=== PATIENT | female | born 1955 | race Caucasian/White ===

== ENCOUNTER 2021-07-29 07:00 | Outpatient (CLI) | payer MEDICARE | END 2021-07-29 23:59 | disposition home or self-care (01) | LOC: LAB 07:00 | PROVIDERS: ATTEND Physician Assistant Medical | DX: R53.83 Other fatigue (principal); R53.81 Other malaise; Z20.822 Contact with and (suspected) exposure to COVID-19 ==

== ENCOUNTER 2021-08-25 11:00 | Outpatient (CLI) | payer MEDICARE ==
[2021-08-25 11:38] LABS: CHOL/HDL RATIO 3.6 (<4.4); CHOLESTEROL 267 mg/dL; HDL CHOLESTEROL 74 mg/dL; LDL CHOLESTEROL,CALCULATED 175 mg/dL; LDL/HDL RATIO 2.4 (<4.4); TRIGLYCERIDES 88 mg/dL; VLDL CHOLESTEROL 18 mg/dL
== END 2021-08-25 11:01 | disposition home or self-care (01) ==
LOC: LAB 11:00
PROVIDERS: ATTEND Internal Medicine
DX: E78.2 Mixed hyperlipidemia (principal)
CPT/HCPCS: 36415; 80061; 83721

== ENCOUNTER 2021-08-29 08:00 | Outpatient (CLI) | payer MEDICARE | END 2021-08-29 23:59 | disposition home or self-care (01) | LOC: LAB 08:00 | PROVIDERS: ATTEND Physician Assistant Medical | DX: J32.9 Chronic sinusitis, unspecified (principal); Z20.822 Contact with and (suspected) exposure to COVID-19 ==

== ENCOUNTER 2022-02-06 14:27 | Outpatient (CLI) | payer MEDICARE ==
--- NOTE | 2022-02-10 10:25 | Ultrasound Report ---
LIMITED ULTRASOUND OF RIGHT BREAST: 02/06/2022 CLINICAL: Patient returns for additional imaging over a suspected mass in the right breast. Comparison is made to exams dated: 01/06/2022 breast MRI - [facility], 11/21/2021 specimen, 2 stereotactic biopsy - [facility], 11/10/2021 mammogram, 10/27/2021 mammogram - [facility], and 11/25/2018 mammogram - out side. Color flow and real-time ultrasound of the right breast retroareolar were performed. Allison scale imag es of the real-time examination were reviewed. There is benign duct dilatation in the right breast central to the nipple posterior depth. No intradu ctal mass. IMPRESSION: KNOWN BIOPSY PROVEN MALIGNANCY There is no sonographic evidence of malignancy. The subareolar ducts are dilated consistent with duct ectasia and is benign. 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 This exam was interpreted at Station ID: [id number]. Electronically Signed By: Rui Mckeon acr/:02/06/2022 16:41:41 Entry: - 02/10/2022 09:46:09 Ultrasound BI-RADS: 6 Known biopsy proven malignancy BI-RADS CATEGORY: (6) - 6 Unspecified - other recall n/a LATERALITY: (B)
== END 2022-02-06 14:28 | disposition home or self-care (01) ==
LOC: DI 14:27
PROVIDERS: ATTEND Surgery
DX: C50.811 Malignant neoplasm of overlapping sites of right female breast (principal); R92.8 Other abnormal and inconclusive findings on diagnostic imaging of breast

== ENCOUNTER 2022-02-13 13:03 | Outpatient (CLI) | payer MEDICARE | END 2022-02-13 13:04 | disposition home or self-care (01) | LOC: LAB 13:03 | PROVIDERS: ATTEND Surgery | DX: Z01.812 Encounter for preprocedural laboratory examination (principal); D05.11 Intraductal carcinoma in situ of right breast; Z20.822 Contact with and (suspected) exposure to COVID-19 ==

== ENCOUNTER 2022-02-16 07:59 | Day surgery (SDC) | payer MEDICARE ==
[~2022-02-16 07:59] MED LIST: LIDOCAINE-MPF 1% 10 ML AMP ONE
[2022-02-16] MEDS ORDERED: LACTATED RINGERS 1,000 ML IV ONE (08:18)
[2022-02-16 08:20] VITALS: BP 141/87
[2022-02-16] MEDS ORDERED: ATROPINE ABBOJECT 1 MG/10 ML SYRINGE IVP PRN (08:40)
[2022-02-16] MEDS ORDERED: NALOXONE 0.4 MG/ML VIAL IVP PRN (08:40)
[2022-02-16] MEDS ORDERED: HYDROmorphone 0.5 MG/0.5 ML SYRINGE IVP PRN (08:40)
[2022-02-16] MEDS ORDERED: ONDANSETRON 4 MG/2 ML VIAL IVP PRN (08:40)
[2022-02-16] MEDS ORDERED: fentaNYL 100 MCG/2 ML VIAL IVP PRN (08:40)
[2022-02-16] MEDS ORDERED: MORPHINE 2 MG/ML CARPUJECT IVP PRN (08:40)
[2022-02-16] MEDS ORDERED: ePHEDrine 50 MG/ML VIAL IVP PRN (08:40)
[2022-02-16] MEDS ORDERED: METOCLOPRAMIDE 10 MG/2 ML VIAL IVP PRN (08:40)
--- NOTE | 2022-02-16 08:40 | ANESTHESIA ---
Pre-Anesthesia VS, & Labs - Diagnosis R breast mass - Procedure R breast lumpectomy Vital Signs: Temp Pulse Resp BP Pulse Ox 36.6 C 75 14 141/87 H 98 02/16/22 08:10 02/16/22 08:10 02/16/22 08:10 02/16/22 08:10 02/16/22 08:10 Height: 5 ft 5 in Weight (kg): 80 kg Body Mass Index: 29.3 BMI Classification: Overweight - NPO >8 hours - Is Patient ?: No Home Medications and Allergies No Known Home Medications 02/06/22 Allergies/Adverse Reactions: Allergies Allergy/AdvReac Type Severity Reaction Status Date / Time adhesive tape AdvReac blisters Verified 02/16/22 08:36 Anes History & Medical History - Anesthetic History Anesthesia Complications: reports: No previous complications Family history of Anesthesia Complications: Denies Family history of Malignant Hyperthermia: Denies - Medical History Cardiovascular: reports: None Pulmonary: reports: None Gastrointestinal: reports: None Urinary: reports: None Musculoskeletal: reports: None Endocrine/Autoimmune: reports: None Skin: reports: Other - Surgical History General: reports: Colonoscopy Orthopedic: reports: Arthroscopic surgery Exam General: Alert, Oriented x3, Cooperative Dental: WNL Mouth Openin Fingerbreadth Neck Mobility: Normal Mallampati classification: II Thyromental Distance: 4-6 cm Respiratory: Lungs clear Cardiovascular: Regular rate Plan Anesthesia Type: General Consent for Procedure(s) Verified and Reviewed: Yes Code Status: Attempt Resuscitation ASA classification: 2-Mild systemic disease Is this case an emergency?: No
[2022-02-16] MEDS ORDERED: LACTATED RINGERS 1,000 ML IV SCH (09:00)
--- NOTE | 2022-02-16 11:34 | Ultrasound Report ---
PROCEDURE: Breast Unilateral Limited INDICATIONS: RT BREAST DCIS TECHNIQUE: The indications, alternatives, benefits, risks, and complications of the procedure were explained to the patient. Written informed consent was obtained and placed in the chart. The abdomen and pelvis were examined sonographically, and an appropriate site was chosen for paracentesis. The skin was pre pared and draped in the usual sterile fashion, and 1% lidocaine was infiltrated from the skin down th rough the peritoneal surface. A 19-gauge catheter-covered needle was then introduced into the perito denys space, the catheter was advanced and the needle was withdrawn, and thereafter peritoneal fluid w as withdrawn. The catheter was then removed and a dressing was applied. The fluid was discarded if the clinician did not order diagnostic testing of the fluid. COMPARISON: MRI breast 01/06/2022 and stereotactic guided biopsy images 11/21/2021. FINDINGS: The previously placed biopsy marker is not visualized sonographically. No sonographic abnor mality is identified at the 12:00 posterior depth area of interest. IMPRESSION: Wire localization procedure was not performed, as the biopsy marker could not be visualized. Reviewed by: Evangelist Justin MD on 02/16/2022 11:33 AM PDT Approved by: Evangelist Justin MD on 02/16/2022 11:33 AM PDT Station ID: [id number]
== END 2022-02-16 08:00 | disposition home or self-care (01) ==
LOC: DI 07:59
PROVIDERS: ATTEND Surgery
DX: D05.11 Intraductal carcinoma in situ of right breast (principal); Z53.8 Procedure and treatment not carried out for other reasons

== ENCOUNTER 2022-02-19 06:30 | Day surgery (SDC) | payer MEDICARE ==
[~2022-02-19 06:30] MED LIST changes: +CEFAZOLIN SODIUM IN 0.9 % NACL 2 GM/50 ML BAG IV ONE; +LACTATED RINGERS 1,000 ML IV ONE; -LIDOCAINE-MPF 1% 10 ML AMP ONE
--- NOTE | 2022-02-19 07:31 | ANESTHESIA ---
Pre-Anesthesia VS, & Labs - Diagnosis right breast cancer - Procedure right breast lumpectomy, needle localization Height: 5 ft 5 in Weight (kg): 80.6 kg Body Mass Index: 29.5 BMI Classification: Overweight - NPO >8 hours - Is Patient ?: No Home Medications and Allergies No Known Home Medications 02/06/22 Allergies/Adverse Reactions: Allergies Allergy/AdvReac Type Severity Reaction Status Date / Time adhesive tape AdvReac blisters Verified 02/19/22 07:09 Anes History & Medical History - Anesthetic History Anesthesia Complications: reports: No previous complications - Medical History Cardiovascular: reports: None Pulmonary: reports: None Gastrointestinal: reports: None Urinary: reports: None Musculoskeletal: reports: None Endocrine/Autoimmune: reports: None Skin: reports: None Smoking Status: Never smoker Psychosocial: reports: Alcohol (wine now and then) History of Cancer?: Yes - Surgical History General: reports: Colonoscopy Gynecologic: reports: Other Exam General: Alert, Oriented x3 Dental: WNL Mouth Opening: Greater than 4 Fingerbreadths Neck Mobility: Normal Mallampati classification: II Thyromental Distance: greater than 6 cm Respiratory: Lungs clear Cardiovascular: Regular rate Plan Anesthesia Type: General Consent for Procedure(s) Verified and Reviewed: Yes Code Status: Attempt Resuscitation ASA classification: 2-Mild systemic disease Is this case an emergency?: No
[2022-02-19] MEDS ORDERED: ATROPINE ABBOJECT 1 MG/10 ML SYRINGE IVP PRN (07:32)
[2022-02-19] MEDS ORDERED: HYDROmorphone 0.5 MG/0.5 ML SYRINGE IVP PRN (07:32)
[2022-02-19] MEDS ORDERED: NALOXONE 0.4 MG/ML VIAL IVP PRN (07:32)
[2022-02-19] MEDS ORDERED: MORPHINE 2 MG/ML CARPUJECT IVP PRN (07:32)
[2022-02-19] MEDS ORDERED: ONDANSETRON 4 MG/2 ML VIAL IVP PRN ×2 (07:32→09:25)
[2022-02-19] MEDS ORDERED: ePHEDrine 50 MG/ML VIAL IVP PRN (07:32)
[2022-02-19] MEDS ORDERED: METOCLOPRAMIDE 10 MG/2 ML VIAL IVP PRN (07:32)
[2022-02-19] MEDS ORDERED: fentaNYL 100 MCG/2 ML VIAL IVP PRN (07:32)
[2022-02-19] MEDS ORDERED: MIDAZOLAM 2 MG/2 ML VIAL ONE (07:44)
[2022-02-19] MEDS ORDERED: LACTATED RINGERS 1,000 ML IV SCH (08:00)
[2022-02-19] MEDS ORDERED: BUPIVACAINE 0.25% PF 30 ML VIAL ONE (08:32)
[2022-02-19] MEDS ORDERED: LIDOCAINE 2%-EPI 1:100000 20 ML MDV ONE (08:32)
[2022-02-19] MEDS ORDERED: PROPOFOL 200 MG/20 ML VIAL IVP ONE (09:00)
[2022-02-19] MEDS ORDERED: diphenhydrAMINE INJ 50 MG/ML VIAL ONE (09:00)
[2022-02-19] MEDS ORDERED: ONDANSETRON 4 MG/2 ML VIAL ONE (09:00)
[2022-02-19] MEDS ORDERED: LIDOCAINE-MPF 2% 5 ML VIAL ONE (09:00)
[2022-02-19] MEDS ORDERED: DEXAMETHASONE 4 MG/ML VIAL ONE (09:00)
[2022-02-19] MEDS ORDERED: BUPIVACAINE 0.25% PF 30 ML VIAL SUBQ ONE ×2 (09:10)
[2022-02-19] MEDS ORDERED: ePHEDrine 50 MG/ML VIAL IVP ONE (09:24)
--- NOTE | 2022-02-19 09:24 | OPERATIVE REPORT ---
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 Following successful induction of general endotracheal anesthesia, appropriate padding of all bony prominences, and placement of appropriate monitors, the left breast was prepped and draped in the standard surgical fashion. A timeout was held per scope protocol. All elements of the surgical safety checklist were followed before, during, and after the procedure. The area over the right breast mass and in a lateral axillary fold was infiltrated with a mixture of local anesthetics to cry to field block. An incision was then created laterally in the area of wire placment and carried through the skin and subcutaneous tissue. Images were consulted once again to triangulate the position of the clip and calcifications in relation to the wire. Sharp dissection was undertaken to remove the wire and the surrounding tissue in one piece. This was submitted for xray and revealed the marker and wire both contained within the specimen. The wound was checked for hemostasis. It was irrigated again with warm water. The biopsy cavity was then marked with clips peripherally and centrally. The wound was then closed in 2 layers with Vicryl and Monocryl sutures. All sponge, needle, and instrument counts were correct at the conclusion of the case. The patient was let awakened anesthesia without difficulty and taken to the postanesthesia care unit in good condition.
[2022-02-19] MEDS ORDERED: IBUPROFEN 600 MG TABLET PO PRN (09:25)
[2022-02-19] MEDS ORDERED: oxyCODONE 5 MG TABLET PO PRN (09:25)
[2022-02-19] MEDS ORDERED: ACETAMINOPHEN 325 MG TABLET PO PRN (09:25)
[2022-02-19] MEDS ORDERED: LACTATED RINGERS 1,000 ML IV ONE (09:32)
--- NOTE | 2022-02-19 10:23 | ANESTHESIA POST OP EVALUATION ---
Anesthesia Post Eval - Post Anesthesia Eval Vitals: Last Vital Signs Temp 36.1 C L 02/19/22 09:48 Pulse 80 02/19/22 09:48 Resp 18 02/19/22 09:48 BP 130/76 02/19/22 09:48 Pulse Ox 98 02/19/22 09:48 CV Function Including HR & BP: Stable Pain Control: Satisfactory Nausea & Vomiting: Negative Mental Status: Baseline Respiratory Status: Airway Patent Hydration Status: Satisfactory Anesthesia Complications: None
[2022-02-19 10:46] VITALS: BP 129/74
--- NOTE | 2022-02-23 15:55 | XRAY Report ---
SPECIMEN: 02/19/2022 CLINICAL: Right breast specimen. A surgical specimen containing a biopsy clip and localization wire were imaged and oriented for the p uposes of pathological evaluation. IMPRESSION: SPECIMEN A surgical specimen containing a biopsy clip and localization wire were imaged and oriented for the puposes of pathological evaluation. This exam was interpreted at Station ID: [id number]. Evangelist Justin M.D. jr/:02/19/2022 09:34:35 Unspecified - other recall n/a B
== END 2022-02-19 06:31 | disposition home or self-care (01) ==
LOC: SDS 06:30
PROVIDERS: ATTEND Surgery
PROC: 0HBT0ZZ Excision of Right Breast, Open Approach (ICD-10-PCS; principal; 2022-02-19 07:30)
DX: D05.11 Intraductal carcinoma in situ of right breast (principal); N60.11 Diffuse cystic mastopathy of right breast
CPT/HCPCS: 19301; J0690; J1200; J7120

== ENCOUNTER 2022-03-20 10:07 | Outpatient (CLI) | payer MEDICARE ==
[2022-03-20 10:39] LABS: CHOL/HDL RATIO 4.2 (<4.4); CHOLESTEROL 245 mg/dL; HDL CHOLESTEROL 58 mg/dL; LDL CHOLESTEROL,CALCULATED 168 mg/dL; LDL/HDL RATIO 2.9 (<4.4); TRIGLYCERIDES 97 mg/dL; VLDL CHOLESTEROL 19 mg/dL
== END 2022-03-20 10:08 | disposition home or self-care (01) ==
LOC: LAB 10:07
PROVIDERS: ATTEND Internal Medicine
DX: E78.2 Mixed hyperlipidemia (principal)
CPT/HCPCS: 36415; 80061; 83721

== ENCOUNTER 2022-03-23 06:25 | Day surgery (SDC) | payer MEDICARE ==
[2022-03-23] MEDS ORDERED: LACTATED RINGERS 1,000 ML IV ONE (06:32)
[2022-03-23] MEDS ORDERED: CEFAZOLIN SODIUM IN 0.9 % NACL 2 GM/50 ML BAG IV ONE (06:39)
[2022-03-23] MEDS ORDERED: fentaNYL 100 MCG/2 ML VIAL IVP PRN (07:13)
[2022-03-23] MEDS ORDERED: ONDANSETRON 4 MG/2 ML VIAL IVP PRN ×2 (07:13→09:00)
[2022-03-23] MEDS ORDERED: LIDOCAINE-MPF 2% 5 ML VIAL ONE (07:13)
[2022-03-23] MEDS ORDERED: HYDROmorphone 0.5 MG/0.5 ML SYRINGE IVP PRN (07:13)
[2022-03-23] MEDS ORDERED: PROPOFOL 200 MG/20 ML VIAL IVP ONE (07:13)
[2022-03-23] MEDS ORDERED: ATROPINE ABBOJECT 1 MG/10 ML SYRINGE IVP PRN (07:13)
[2022-03-23] MEDS ORDERED: METOCLOPRAMIDE 10 MG/2 ML VIAL IVP PRN (07:13)
[2022-03-23] MEDS ORDERED: MORPHINE 2 MG/ML CARPUJECT IVP PRN (07:13)
[2022-03-23] MEDS ORDERED: NALOXONE 0.4 MG/ML VIAL IVP PRN (07:13)
[2022-03-23] MEDS ORDERED: ePHEDrine 50 MG/ML VIAL IVP PRN (07:13)
[2022-03-23] MEDS ORDERED: fentaNYL 100 MCG/2 ML VIAL ONE (07:14)
[2022-03-23] MEDS ORDERED: MIDAZOLAM 2 MG/2 ML VIAL ONE (07:14)
[2022-03-23] MEDS ORDERED: BUPIVACAINE 0.25% PF 10 ML VIAL ONE (07:18)
[2022-03-23] MEDS ORDERED: LIDOCAINE 2%-EPI 1:100000 20 ML MDV ONE (07:18)
--- NOTE | 2022-03-23 07:26 | ANESTHESIA ---
Pre-Anesthesia VS, & Labs - Diagnosis right breast cancer - Procedure right breast re-excision for positive margins Vital Signs: Temp Pulse Resp BP Pulse Ox 36.2 C L 78 16 129/84 H 100 03/23/22 06:32 03/23/22 06:32 03/23/22 06:32 03/23/22 06:32 03/23/22 06:32 Height: 5 ft 4 in Weight (kg): 81.6 kg Body Mass Index: 30.9 BMI Classification: Obese - NPO >8 hours - Is Patient ?: No Home Medications and Allergies Active Medications Atropine Sulfate (Atropine Abboject 1 Mg/10 Ml Syringe) 0.5 mg IVP Q5M PRN PRN Reason: Bradycardia Stop: 03/24/22 07:13 Ephedrine Sulfate (Ephedrine 50 Mg/Ml Vial) 10 mg IVP Q5M PRN PRN Reason: HYPOTENSION Stop: 03/24/22 07:13 Fentanyl (Fentanyl 100 Mcg/2 Ml Vial) 25 - 50 mcg IVP Q5M PRN PRN Reason: BREAKTHROUGH PAIN (2nd Choice) Stop: 03/24/22 07:13 Hydromorphone HCl (Hydromorphone 0.5 Mg/0.5 Ml Syringe) 0.2 - 0.6 mg IVP Q5M PRN PRN Reason: PAIN (First Choice) Stop: 03/24/22 07:13 Lactated Ringer's (Lr) 1,000 mls @ 100 mls/hr IV .Q10H TYLOR Stop: 03/23/22 17:59 Metoclopramide HCl (Metoclopramide 10 Mg/2 Ml Vial) 10 mg IVP Q6HR PRN PRN Reason: N/V not relieved by Zofran Morphine Sulfate (Morphine 2 Mg/Ml Carpuject) 2 - 4 mg IVP Q5M PRN PRN Reason: PAIN (3rd Choice) Stop: 03/24/22 07:13 Naloxone HCl (Naloxone 0.4 Mg/Ml Vial) 0.1 mg IVP Q2M PRN PRN Reason: RESP RATE <8 Stop: 03/24/22 07:13 Ondansetron HCl (Ondansetron 4 Mg/2 Ml Vial) 4 mg IVP ONCE PRN PRN Reason: N/V (First Choice) Stop: 03/24/22 07:13 Allergies/Adverse Reactions: Allergies Allergy/AdvReac Type Severity Reaction Status Date / Time adhesive tape AdvReac blisters Verified 02/19/22 07:09 Anes History & Medical History - Anesthetic History Anesthesia Complications: reports: No previous complications - Medical History Cardiovascular: reports: None Pulmonary: reports: None, Other (covid 2 weeks ago) Gastrointestinal: reports: None Urinary: reports: None Musculoskeletal: reports: None Endocrine/Autoimmune: reports: None Skin: reports: None Smoking Status: Never smoker History of Cancer?: Yes - Surgical History General: reports: Colonoscopy Gynecologic: reports: Other Orthopedic: reports: Arthroscopic surgery Exam General: Alert Dental: WNL Mouth Opening: Greater than 4 Fingerbreadths Mallampati classification: II Thyromental Distance: greater than 6 cm Respiratory: Lungs clear Cardiovascular: Regular rate Plan Anesthesia Type: General Consent for Procedure(s) Verified and Reviewed: Yes Code Status: Attempt Resuscitation ASA classification: 2-Mild systemic disease Is this case an emergency?: No
[2022-03-23] MEDS ORDERED: LACTATED RINGERS 1,000 ML IV SCH (08:00)
[2022-03-23] MEDS ORDERED: BUPIVACAINE 0.25% PF 10 ML VIAL SUBQ ONE (08:31)
[2022-03-23] MEDS ORDERED: LIDOCAINE 1%-EPI 1:100000 30 ML MDV SUBQ ONE (08:31)
[2022-03-23] MEDS ORDERED: ACETAMINOPHEN 1,000 MG/100 ML 100 ML IV ONE (08:33)
[2022-03-23] MEDS ORDERED: ACETAMINOPHEN 325 MG TABLET PO PRN (09:00)
[2022-03-23] MEDS ORDERED: IBUPROFEN 600 MG TABLET PO PRN (09:00)
[2022-03-23] MEDS ORDERED: oxyCODONE 5 MG TABLET PO PRN (09:00)
--- NOTE | 2022-03-23 09:00 | OPERATIVE REPORT ---
Operative Report - General Procedure Date: 03/23/22 Planned Procedure: Reexcision of margins following lumpectomy for DCIS Pre-Op Diagnosis: DCIS of the right breast-positive anterior margin Procedure Performed: Reexcision of margins following lumpectomy for DCIS Post Op Diagnosis: DCIS of the right breast-positive anterior margin - Procedure Note Primary Surgeon: Flash Anesthesia Provider: JAXON Ragsdale Anesthesia Technique: General LMA Pathology: Anterior margin marked for orientation and submitted to pathology Estimated Blood Loss (mL): 5 Indications: Focally positive anterior margin after lumpectomy Findings: Well-defined seroma cavity in the central breast Complications: None apparent - Other Other Information/Narrative: After obtaining informed consent, the patient is brought to the operating room and placed in supine position on the operating table. Following successful induction of general anesthesia, appropriate padding of all bony prominences, and placement of appropriate monitors, the right breast and chest were prepped and draped in the standard surgical fashion. A timeout was held per scope protocol. All elements of the surgical safety checklist were followed before, during, and after the procedure. I began by infiltrating a mixture of local anesthetics in the existing right lower quadrant incision. The existing incision that was then repeated with a 15 blade scalpel and carried through the skin and subcutaneous tissue to the central portion of the breast and a very well defined cavity containing clear seroma fluid.The edge of the cavity was grasped and the entire anterior portion of the cavity was removed sharply. It was marked for orientation and passed from the table as a specimen. The cavity was then checked for hemostasis. It was irrigated with warm water and aspirated free of all fluid and particulate matter. The biopsy cavity was marked with clips to aid in radiation therapy. Once hemostasis was adequate, the skin defect was closed with Vicryl Monocryl suture and Dermabond was applied to the skin. All sponge, needle, and instrument counts were correct at the conclusion of the case. The patient was let awake from anesthesia without difficulty and taken to the postanesthesia care unit in good condition.
[2022-03-23] MEDS ORDERED: LACTATED RINGERS 600 ML IV ONE (09:02)
[2022-03-23 10:00] VITALS: BP 134/75
--- NOTE | 2022-03-23 14:49 | ANESTHESIA POST OP EVALUATION ---
Anesthesia Post Eval - Post Anesthesia Eval Vitals: Last Vital Signs Temp 36.4 C L 03/23/22 09:59 Pulse 66 03/23/22 09:59 Resp 16 03/23/22 09:59 BP 134/75 H 03/23/22 09:59 Pulse Ox 100 03/23/22 09:59 CV Function Including HR & BP: Stable Pain Control: Satisfactory Nausea & Vomiting: Negative Mental Status: Baseline Respiratory Status: Airway Patent Hydration Status: Satisfactory Anesthesia Complications: None
== END 2022-03-23 06:26 | disposition home or self-care (01) ==
LOC: SDS 06:25
PROVIDERS: ATTEND Surgery
PROC: 0HBT0ZX Excision of Right Breast, Open Approach, Diagnostic (ICD-10-PCS; principal; 2022-03-23 07:30)
DX: D05.11 Intraductal carcinoma in situ of right breast (principal); E66.9 Obesity, unspecified; Z68.30 Body mass index [BMI] 30.0-30.9, adult; Z86.16 Personal history of COVID-19
CPT/HCPCS: 19301; J0131; J0690; J7120

== ENCOUNTER 2022-09-10 10:08 | Outpatient (CLI) | payer MEDICARE ==
[2022-09-10 10:23] LABS: BASOPHILS % (AUTO) 0.6 %; EOSINOPHILS # (AUTO) 0.1 10^3/uL (0.0-0.7); EOSINOPHILS % (AUTO) 2.5 %; HCT - HEMATOCRIT 43.8 % (37.0-47.0); HGB - HEMOGLOBIN 13.8 g/dL (12.0-16.0); LYMPHOCYTES # (AUTO) 0.8 10^3/uL (1.5-3.5); LYMPHOCYTES % (AUTO) 20.8 %; MEAN CORPUSCULAR HEMOGLOBIN 28.4 pg (27.0-31.0); MEAN CORPUSCULAR HGB CONC 31.5 g/dL (32.0-36.0); MEAN CORPUSCULAR VOLUME 90.1 fL (81.0-99.0); MEAN PLATELET VOLUME 11.3 fL (7.9-10.8); MONOCYTES # (AUTO) 0.3 10^3/uL (0.0-1.0); MONOCYTES % (AUTO) 7.5 %; NEUTROPHILS # (AUTO) 2.5 10^3/uL (1.5-6.6); NEUTROPHILS % (AUTO) 68.3 %; PLT - PLATELET COUNT 153 10^3/uL (130-450); RED BLOOD COUNT 4.86 10^6/uL (4.20-5.40); RED CELL DISTRIBUTION WIDTH 12.9 % (12.0-15.0); WHITE BLOOD COUNT 3.6 x10^3/uL (4.8-10.8)
[2022-09-10 10:44] LABS: ALBUMIN 4.1 g/dL (3.2-5.5); ALBUMIN/GLOBULIN RATIO 1.2 (1.0-2.2); ALKALINE PHOSPHATASE 14 IU/L (42-121); ALT ALANINE AMINOTRANSFERASE 21 IU/L (10-60); AST ASPARTATE AMINOTRANSFERASE 21 IU/L (10-42); BILIRUBIN,TOTAL 0.8 mg/dL (0.2-1.0); BUN - BLOOD UREA NITROGEN 13 mg/dL (6-20); CALCIUM 9.3 mg/dL (8.5-10.3); CARBON DIOXIDE - CO2 28 mmol/L (21-32); CHLORIDE 102 mmol/L (101-111); CHOL/HDL RATIO 3.9 (<4.4); CHOLESTEROL 265 mg/dL; CREATININE 0.7 mg/dL (0.4-1.0); GFR - MDRD 84 (>89); GLUCOSE 99 mg/dL (70-100); HDL CHOLESTEROL 68 mg/dL; LDL CHOLESTEROL,CALCULATED 180 mg/dL; LDL/HDL RATIO 2.6 (<4.4); SODIUM 138 mmol/L (135-145); TOTAL PROTEIN 7.4 g/dL (6.7-8.2); TRIGLYCERIDES 83 mg/dL; VLDL CHOLESTEROL 17 mg/dL
[2022-09-10 11:21] LABS: ESTIMATED AVERAGE GLUCOSE 123 mg/dL (70-100); HEMOGLOBIN A1c% 5.9 % (4.27-6.07)
== END 2022-09-10 10:09 | disposition home or self-care (01) ==
LOC: LAB 10:08
PROVIDERS: ATTEND Internal Medicine
DX: Z00.00 Encounter for general adult medical examination without abnormal findings (principal); E78.2 Mixed hyperlipidemia; E55.9 Vitamin D deficiency, unspecified; N95.0 Postmenopausal bleeding
CPT/HCPCS: 36415; 80053; 80061; 82306; 83036; 83721; 85025

== ENCOUNTER 2023-08-04 13:23 | Outpatient (CLI) | payer MEDICARE ==
[2023-08-04 13:41] LABS: BILIRUBIN,URINE NEGATIVE (NEGATIVE); GLUCOSE, URINE (UA) NEGATIVE (NEGATIVE); KETONES,URINE (UA) NEGATIVE (NEGATIVE); LEUKOCYTE ESTERASE, URINE NEGATIVE (NEGATIVE); NITRITE,URINE NEGATIVE (NEGATIVE); OCCULT BLOOD,URINE NEGATIVE (NEGATIVE); PROTEIN,URINE NEGATIVE (NEGATIVE); UROBILINOGEN,URINE 0.2 (NORMAL) E.U./dL (NORMAL)
[2023-08-04 13:56] LABS: CLARITY,URINE CLEAR (CLEAR)
[2023-08-04 14:05] LABS: BACTERIA,URINE Rare /HPF (None Seen); CRYSTALS,URINE 0-2 Uric Acid /LPF; RBC,URINE 0-5 /HPF (0-5); SQUAMOUS EPITHELIAL CELL,UR RARE Squamous (<= Few); WBC,URINE 0-3 /HPF (0-5)
== END 2023-08-04 13:24 | disposition home or self-care (01) ==
LOC: LAB 13:23
PROVIDERS: ATTEND Internal Medicine
DX: N39.0 Urinary tract infection, site not specified (principal)
CPT/HCPCS: 81001; 87086

== ENCOUNTER 2023-11-20 08:00 | Outpatient (CLI) | payer MEDICARE ==
[2023-11-20 10:02] LABS: BILIRUBIN,URINE NEGATIVE (NEGATIVE); GLUCOSE, URINE (UA) NEGATIVE (NEGATIVE); KETONES,URINE (UA) NEGATIVE (NEGATIVE); LEUKOCYTE ESTERASE, URINE SMALL (NEGATIVE); NITRITE,URINE NEGATIVE (NEGATIVE); OCCULT BLOOD,URINE NEGATIVE (NEGATIVE); PH,URINE 6.5 PH (5.0-7.5); PROTEIN,URINE NEGATIVE (NEGATIVE); UROBILINOGEN,URINE 0.2 (NORMAL) E.U./dL (NORMAL)
[2023-11-20 10:06] LABS: CLARITY,URINE CLEAR (CLEAR)
[2023-11-20 10:08] LABS: WBC,URINE 0-3 /HPF (0-5)
[2023-11-20 10:09] LABS: BACTERIA,URINE None Seen /HPF (None Seen); RBC,URINE None Seen /HPF (0-5); SQUAMOUS EPITHELIAL CELL,UR NONE SEEN (<= Few)
== END 2023-11-20 23:59 | disposition home or self-care (01) ==
LOC: LAB.WCP 08:00
PROVIDERS: ATTEND Nurse Practitioner
DX: R30.0 Dysuria (principal)
CPT/HCPCS: 81001; 87086